=== PATIENT | male | born 1960 | race Caucasian/White ===

== ENCOUNTER → 2016-12-08 | Outpatient (CLI) | payer OTHER ==
[~2016-12-08] MED LIST: FLOMAX 0.4 MG0.4 MG PO; NEURONTIN 400400 MG PO; NORCO 10-325 T1 EACH PO; NORCO 5-325 TA1 EACH PO; PREVACID15 MG PO; TRAZODONE HCL50 MG PO
== END ==
LOC: OPSV2 09:24
DX: Z01.810 Encounter for preprocedural cardiovascular examination (principal); M75.01 Adhesive capsulitis of right shoulder
CPT/HCPCS: 93005

== ENCOUNTER → 2016-12-14 | Day surgery (SDC) | payer OTHER ==
[~2016-12-14] VITALS: Ht 177.8 cm; Wt 96.6 kg
== END | disposition home or self-care (01) ==
LOC: OR 06:44
PROVIDERS: Orthopaedic Surgery
PROC: 0RSJXZZ Reposition Right Shoulder Joint, External Approach (ICD-10-PCS; principal; 2016-12-14 11:15)
DX: M75.01 Adhesive capsulitis of right shoulder (principal); J45.909 Unspecified asthma, uncomplicated; K21.9 Gastro-esophageal reflux disease without esophagitis; N40.0 Benign prostatic hyperplasia without lower urinary tract symptoms; M79.7 Fibromyalgia; M06.9 Rheumatoid arthritis, unspecified; G89.29 Other chronic pain; M19.90 Unspecified osteoarthritis, unspecified site; F41.9 Anxiety disorder, unspecified; Z79.891 Long term (current) use of opiate analgesic; Z79.899 Other long term (current) drug therapy; Z90.49 Acquired absence of other specified parts of digestive tract; Z98.890 Other specified postprocedural states
CPT/HCPCS: 73020; 76000; J1885; J2250; J2270; J2274; J2795; J3010; J3301; J7030; J7120

== ENCOUNTER 2021-09-23 11:42 | Emergency (ER) | payer OTHER ==
[~2021-09-23 11:42] MED LIST changes: +NORFLEX 100 MG100 MG PO; +Voltaren Gel 1% TOP
[2021-09-23 13:23] LABS: HEMOGLOBIN 15.2 gm/dl (14.0-17.5); RED BLOOD COUNT 5.2 M/UL (4.20-5.50); WHITE BLOOD COUNT 4.5 K/UL (4.5-11.0)
[2021-09-23 13:36] LABS: BUN/CREATININE RATIO 49 (0-10)
[2021-09-23] MEDS ORDERED: BENTYL 20MG TAB20 MG PO (13:47)
[2021-09-23] MEDS ORDERED: ZOFRAN 4 MG TAB4 MG PO (13:47)
== END 2021-09-23 14:14 | disposition home or self-care (01) ==
LOC: ER1 11:42
PROVIDERS: Physician Assistant
DX: R11.0 Nausea (principal); R19.7 Diarrhea, unspecified
CPT/HCPCS: 80053; 81001; 85025; 87086; 96374; 99283; J2405

== ENCOUNTER 2022-03-07 10:00 | Emergency (ER) | payer OTHER ==
[~2022-03-07 10:00] MED LIST changes: +BENTYL 20MG TAB20 MG PO; +ZOFRAN 4 MG TAB4 MG PO
[2022-03-07 11:35] LABS: RED BLOOD COUNT 5.07 M/UL (4.20-5.50); WHITE BLOOD COUNT 5.5 K/UL (4.5-11.0)
[2022-03-07 12:03] LABS: BUN/CREATININE RATIO 22 (0-10)
== END 2022-03-07 13:23 | disposition home or self-care (01) ==
LOC: ER1 10:00
PROVIDERS: Student in an Organized Health Care Education/Training Program
DX: K40.90 Unilateral inguinal hernia, without obstruction or gangrene, not specified as recurrent (principal)
CPT/HCPCS: 80053; 83605; 85025; 99284